=== PATIENT | male | born 1945 | race Caucasian/White ===

== ENCOUNTER → 2019-09-29 | Outpatient (CLI) | payer OTHER | LOC: CAT 16:03 | DX: Z13.6 Encounter for screening for cardiovascular disorders (principal); E78.00 Pure hypercholesterolemia, unspecified; I25.10 Atherosclerotic heart disease of native coronary artery without angina pectoris ==

== ENCOUNTER → 2021-05-15 | Outpatient (CLI) | payer OTHER | LOC: SJCVC 13:13 | PROVIDERS: ATTEND Internal Medicine Cardiovascular Disease | DX: R00.1 Bradycardia, unspecified (principal); E78.00 Pure hypercholesterolemia, unspecified; E78.1 Pure hyperglyceridemia; J45.20 Mild intermittent asthma, uncomplicated; E11.9 Type 2 diabetes mellitus without complications; Z79.899 Other long term (current) drug therapy; Z88.0 Allergy status to penicillin ==

== ENCOUNTER → 2021-05-27 | Outpatient (CLI) | payer OTHER | LOC: CAT 07:12 | PROVIDERS: ATTEND Internal Medicine Cardiovascular Disease | DX: Z13.6 Encounter for screening for cardiovascular disorders (principal); E78.00 Pure hypercholesterolemia, unspecified; I25.10 Atherosclerotic heart disease of native coronary artery without angina pectoris ==

== ENCOUNTER → 2021-07-30 | Outpatient (CLI) | payer OTHER ==
[~2021-07-30] MED LIST: CRESTOR10 MG PO; ORADENT 0.1% DEN5 G1 TOP
== END ==
LOC: SJCVCIMAG 07:30
PROVIDERS: ATTEND Internal Medicine Cardiovascular Disease
DX: R93.1 Abnormal findings on diagnostic imaging of heart and coronary circulation (principal); I25.9 Chronic ischemic heart disease, unspecified; R00.1 Bradycardia, unspecified; E78.00 Pure hypercholesterolemia, unspecified; E78.1 Pure hyperglyceridemia; J45.20 Mild intermittent asthma, uncomplicated; E11.9 Type 2 diabetes mellitus without complications; R06.00 Dyspnea, unspecified; E78.2 Mixed hyperlipidemia; Z79.899 Other long term (current) drug therapy; Z88.0 Allergy status to penicillin; Z82.49 Family history of ischemic heart disease and other diseases of the circulatory system

== ENCOUNTER → 2021-08-12 | Outpatient (CLI) | payer OTHER ==
[~2021-08-12] VITALS: Ht 172.7 cm; Wt 91.2 kg
[2021-08-12 07:31] VITALS: BP 155/78
[2021-08-12 08:12] LABS: HEMATOCRIT 38.5 % (42.0-52.0); HEMOGLOBIN 13.3 gm/dL (14.0-18.0); MCH 31.8 pg (26.0-34.0); MCHC 34.4 g/dL (28.0-37.0); MCV 92.5 fL (80.0-100.0); RBC 4.17 mil/uL (4.50-6.00); WBC 6.5 thou/uL (4.0-11.0)
[2021-08-12 08:41] LABS: CALCIUM 8.8 mg/dL (8.5-10.1); CREATININE 0.9 mg/dL (0.7-1.3); POTASSIUM 4.1 mmol/L (3.5-5.1)
--- NOTE | 2021-08-12 09:50 | NUR ---
LATE ENTRY- 09:35 PT TO CV HOLDING RM 1 A/OX3 WITH NO C/O. MONITORS APPLYED AND MEAL TRAY PROVIDED. AT BEDSIDE ASSISTING PT WITH EATING.
--- NOTE | 2021-08-12 10:03 | EKG ---
[place] [place] [address] [employer] [place] [address] ELECTROCARDIOGRAM REPORT Name: AIMEANGELIC Room #: REG [facility]#: [id number] Admission: 08/12/21 Attend Phys: Edy Villanueva MD, Discharge: Date of : 45 Report #: [id number] [facility] Test Date: 2021-08-12 Test Time: 07:23:59 Pat Name: ANGELIC SALOMON Department: Room: Gender: Life Insurance Underwriter: [facility] : 1945 Requested By: Edy Villanueva Order Number: [id number] MD: Steven Davis Measurements Intervals [place] Rate: 52 P: 52 ME: 186 QRS: 10 QRSD: 87 T: 56 QT: 442 QTc: 411 Interpretive Statements Sinus bradycardia Otherwise no significant abnormality No previous ECG available for comparison Electronically Signed On 08-12-2021 7:54:56 EDGER LINER by Steven Davis [email or web address] <ELECTRONICALLY SIGNED> By: Steven Davis MD, [facility] 08/12/21 0754 0723 0723 Steven Davis MD, FACC /EPI
--- NOTE | 2021-08-12 12:06 | NUR ---
PT AMBULATED WITH NO C/O PAIN OR SOA. R GROIN NOTED CDI WITH NO HEMATOMA AFTER AMBULATION.
--- NOTE | 2021-08-12 18:04 | CATHLAB ---
[facility] [place] [address] INVASIVE PROCEDURE REPORT Name: AIMEANGELIC JOHN Room #: REG [facility].#: [id number] Admission: 08/12/21 Attend Phys: Edy Villanueva MD, Discharge: Date of : 45 Report #: [id number] THIS REPORT FOR: cc: Cecil Manrique Alan Z. DO Mancuso, Gerald M. MD [facility] ~ APPROVED REPORT Study performed: 08/12/2021 08:19:04 Patient Details Patient Status: Out-Patient Room #: The patient is a 76 year-old male Event Personnel Edy Villanueva Administrative Assistant Front Desk, Joanne Omer RTR Monitor, Lyndon Duran RTR Scrub, Rosalino Rivera RN dental laboratory technician apprentice Performed Art Access - R femoral artery* Left Heart Cath w/or w/o Coronaries [id number] [facility] Hemostasis w/ Mynx 03051 Initial Mod Sed Same Phys/QHP Gr5y 384160 51920 Mod Sed Same Phys/QHP Ea [id number] Procedure Narrative The Right Groin^ was infiltrated with 1% Lidocaine subcutaneous anesthesia. A PINNACLE 6FR Sheath #[id number] sheath was inserted into the RFA^. Coronary angiography was performed using coronary diagnostic catheters. The right coronary system was accessed and visualized with a JR4 catheter. The left coronary system was accessed and visualized with a JL5 catheter. The left ventricle was accessed and visualized with a PIGTAIL catheter. Left ventriculogram was performed in 30 degree projection. An aortogram of the abdominal aorta was performed. Closure device was deployed with a Fr MYNXGRIP 6/7F [id number]. The patient tolerated the procedure well and there were no complications associated with the procedure. There was no hematoma. Intraoperative Conscious Sedation Sedation start time: 8:41 Case end Time: 9:22 Fentanyl 50 mcg Versed 2 mg Fluoro Time: 4.10 minutes [facility] [place] [address] INVASIVE PROCEDURE REPORT Name: ANGELIC SALOMON [facility] #: [facility] [id number] Admission: 08/12/21 Attend Phys: Edy Villanueva, Discharge: Date of : 45 Report #: [id number] Dose: DAP 7859.40 cGycm2 1027 mGy Contrast Type and Amount: Visipaque 120 ml Hemodynamics The aortic pressure is 143/60 mmHg with a mean of 74 mmHg. The left ventricular pressure is 143/2 mmHg with a mean of mmHg. The left ventricular end diastolic pressure is 23 mmHg. Conclusion #1 Normal left ventricular size and systolic function EF 60%. #2 abdominal aortogram is mildly ectatic no aneurysm. 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 Significant tortuosity of the right iliac artery is noted #3 Short left main with mild calcification giving rise to LAD and circumflex. #4 the LAD is moderately calcified and moderately diseased in the proximal segment. 50 to 60% eccentric narrowing after diagonal takeoff. Moderately diseased around the apex and calcified. No clear indication for intervention. #5 circumflex OM is an eccentric lesion off of the left main ostial of 60% and then the OM in the mid vessel is high-grade subtotaled and fills a moderate to severely diseased distal OM system which has some competitive filling. Intervention to the high-grade segment would not provide much of any benefit. As it is supplying a very small diffusely diseased vessel distally #6 dominant right coronary with an eccentric 60 to 70% distal third lesion otherwise a fairly well-preserved vessel anatomically dominant. Recommendations and plan: Continue aggressive risk factor modification. Has a diabetic appearing progression of disease. Will evaluate and treat lipids blood sugars and hypertensive aggressively. Medical therapy is best here. Close follow-up. <ELECTRONICALLY SIGNED> By: Edy Villanueva MD, [facility] 08/12/211803 03 03 Edy Villanueva MD, FACC /INF
== END | disposition home or self-care (01) ==
LOC: CATH 06:21
PROVIDERS: ATTEND Internal Medicine Cardiovascular Disease
DX: I25.10 Atherosclerotic heart disease of native coronary artery without angina pectoris (principal); R94.39 Abnormal result of other cardiovascular function study; I70.1 Atherosclerosis of renal artery; I77.811 Abdominal aortic ectasia; E11.9 Type 2 diabetes mellitus without complications; J45.909 Unspecified asthma, uncomplicated; E78.5 Hyperlipidemia, unspecified; Z98.890 Other specified postprocedural states; Z79.899 Other long term (current) drug therapy; Z88.0 Allergy status to penicillin